=== PATIENT | male | born 2000 | race Caucasian/White ===

== ENCOUNTER 2024-11-22 20:00 | Inpatient (IN) | payer OTHER, SELFPAY ==
[2024-11-22 20:02] VITALS: BP 144/80; PULSE 78; RESP 18; TEMP 37; O2SAT 97; BMI 25.1
[2024-11-22 20:52] LABS: MANUAL DIFF FLAG NO
[2024-11-22 20:55] LABS: Basophils Absolute Auto 0.1 X10*3/uL (0.0-0.2); Basophils Percent Auto 0.5 % (0-2); Eosinophils Absolute Auto 0.3 X10*3/uL (0.0-0.4); Eosinophils Percent Auto 2.9 % (0-4); Hemoglobin 15.3 g/dl (14.0-18.0); Imm Gran Abs Auto 0.02 X10*3/uL (0.00-0.03); Imm Gran Pct Auto 0.2 % (0.0-0.4); Lymphocytes Percent Auto 20.5 % (20-40); Mean Corpuscular HGB Conc 35.6 g/dl (31.0-36.0); Mean Corpuscular Hemoglobin 30.5 pg (27.0-33.0); Mean Corpuscular Volume 85.8 fL (80.0-98.0); Mean Platelet Volume 8.4 fL (9.4-12.4); Monocytes Absolute Auto 0.9 X10*3/uL (0.1-1.2); Monocytes Percent Auto 9.3 % (2-11); Neutrophils Absolute Auto 6.4 x10*3/uL (2.0-8.3); Neutrophils Percent Auto 66.6 % (45-73); Platelet Count 372 X10*3/uL (160-400); Red Blood Count 5.01 X10*6/uL (4.60-5.80); Red Cell Distribution Width 12.6 % (11.0-16.0); White Blood Count 9.7 X10*3/uL (4.8-10.8)
[2024-11-22 21:03] VITALS: BP 137/82; PULSE 82; RESP 18; TEMP 36.9; O2SAT 97
[2024-11-22 21:05] LABS: Anion Gap 15 (12-20); Blood Urea Nitrogen 9 mg/dL (9-16); C Reactive Protein 0.18 mg/dL (< or = 0.50); Calcium 9.4 mg/dL (8.4-10.2); Carbon Dioxide 27 mmol/L (22-29); Chloride 102 mmol/L (96-108); Creatinine Clr Calc Pharmacy 147.8; Estimated Glomerular Filt Rate > 60; Glucose Random 108 mg/dL (60-115); Lipase 17 U/L (8-78); Sodium 140 mmol/L (135-145)
[2024-11-22 21:07] LABS: Lactic Acid 0.8 mmol/L (0.5-2.0)
--- NOTE | 2024-11-22 21:10 | ED_ITS ---
HPI - General Adult General Chief complaint: Wound/Laceration Stated complaint: left index finger infected / no drainage Time Seen by Provider: 11/22/24 20:09 Source: patient and RN notes reviewed Mode of arrival: ambulatory Limitations: no limitations History of Present Illness ED Provider: Ary DALEY narrative: 24-year-old male with past medical history significant for ADHD presents for evaluation of an abscess to his left 2nd finger. He was seen at his [facility] about a week ago and was placed on doxycycline. He reports he has 3 days left of the antibiotic but his finger is more painful, red and swollen than it was. He believes his symptoms started after he was biting his nails. He was able to flex and extend the finger Denies any fevers, chills. He was not a diabetic Related Data Allergies Allergy/AdvReac Type Severity Reaction Status Date / Time Penicillins Allergy Unknown Verified 11/22/24 20:05 Review of Systems 2 Constitutional: Constitutional: Denies body ache(s), Denies chills and Denies fever(s) Eyes: Eyes: Denies blurry vision Cardiovascular: Cardiovascular: Denies chest pain and Denies dyspnea Respiratory: Respiratory: Denies cough and Denies dyspnea Integumentary/Breasts: Skin/Breast: Reports erythema, Reports rash, Reports skin pain and Reports skin swelling PMFSH Social History Social History Advance Directives: No Advance Directives Information Provided: No Do you have a plan to hurt others: No Plan Physical Exam ED Vital Signs: Vital Signs - 24 hr 11/22/24 20:02 Temperature 98.6 F Pulse Rate 78 Respiratory Rate 18 Blood Pressure 144/80 H Pulse Oximetry 97 Oxygen Delivery Method Room Air BMI result Body Mass Index 25.1 Skin Other: Large paronychia to the left 2nd finger. There appears to be a felon on the finger pad. This area is tender to palpation. The patient is able to flex at the PIP and MCP joints but does have limited range of motion of the D IP joint. He does have some tenderness to the left forearm and streaking lymphangitis up with the left forearm. Procedures Abscess I/D Site: hand Side (if applicable): left (index finger) Local Anesthetic: lidocaine 1% Amount of anesthesia used (mL): 4 Technique: incised with blade Amount of fluid expressed (mL): 6 Sent for culture/gram staining?: Yes Irrigation: No Packing used?: none Medical Decision Making Medical Decision Making [facility] Narrative: 24-year-old male presents for evaluation of a paronychia to his left index finger. He has already failed outpatient antibiotics with doxycycline which he has been on for at least 4 days. See procedure note for paronychia drainage. I discussed with hand surgery, Dr. Vizcaino who recommends making a small incision at the fingertip due to the felon. Labs to be drawn, a wound culture was sent. The patient will give be given IV antibiotics with vancomycin and ceftriaxone. The patient will be NPO after midnight. Differential Diagnosis Differential Diagnoses: The differential diagnosis associated with the presentation includes Paronychia Abscess formation Felon Tenosynovitis Admission/Observation Consideration of admission/observation: Escalation of care including admission/observation considered Consult Healthcare Provider Management of the patient was discussed with: Senior Analyst [employer] (Hand surgery) Lab Data [facility] Lab Attestation statement: I reviewed the patient's lab results. No leukocytosis or anemia. Normal platelet count. No electrolyte abnormalities. Chemistries within normal limits 11/22/24 20:40 11/22/24 20:37 Labs: Lab Results 11/22/24 11/22/24 Range/Units 20:37 20:40 WBC 9.7 (4.8-10.8) X10*3/uL RBC 5.01 (4.60-5.80) X10*6/uL Hgb 15.3 (14.0-18.0) g/dl Hct 43.0 (42.0-52.0) % MCV 85.8 (80.0-98.0) fL MCH 30.5 (27.0-33.0) pg MCHC 35.6 (31.0-36.0) g/dl RDW 12.6 (11.0-16.0) % Plt Count 372 (160-400) X10*3/uL MPV 8.4 L (9.4-12.4) fL Immature Gran % (Auto) 0.2 (0.0-0.4) % Neut % (Auto) 66.6 (45-73) % Lymph % (Auto) 20.5 (20-40) % [place] % (Auto) 9.3 (2-11) % Eos % (Auto) 2.9 (0-4) % Baso % (Auto) 0.5 (0-2) % Lymph # (Auto) 2.0 (1.2-4.9) X10*3/uL [place] # (Auto) 0.9 (0.1-1.2) X10*3/uL Eos # (Auto) 0.3 (0.0-0.4) X10*3/uL Baso # (Auto) 0.1 (0.0-0.2) X10*3/uL Abs Immat Gran (auto) 0.02 (0.00-0.03) X10*3/uL Absolute Neuts (auto) 6.4 (2.0-8.3) x10*3/uL Absolute Nucleated RBC 0.000 (0.0-0.012) X10*3/uL Nucleated RBC % (auto) 0.0 (0.0-0.2) /100WBC Sodium 140 (135-145) mmol/L Potassium 4.0 (3.3-5.1) mmol/L Chloride 102 (96-108) mmol/L Carbon Dioxide 27 (22-29) mmol/L Anion Gap 15 (12-20) BUN 9 (9-16) mg/dL Creatinine 0.86 (0.5-1.4) mg/dL Estim Creat Clear Calc 147.8 Estimated GFR > 60 Random Glucose 108 (60-115) mg/dL Lactic Acid 0.8 (0.5-2.0) mmol/L Calcium 9.4 (8.4-10.2) mg/dL C-Reactive Protein 0.18 (< or = 0.50) mg/dL Lipase 17 (8-78) U/L Discharge Plan Discharge Clinical Impression: Abscess around fingernail of left hand Patient Disposition: Admitted As Inpatient Print Language: Wolof
[2024-11-22 21:36] LABS: Erythrocyte Sedimentation Rate 1 MM/HR (0-15)
--- NOTE | 2024-11-22 21:43 | P.HPHOSP_ITS ---
History of Present Illness Date of Service: 11/22/24 Chief Complaint: Finger infection This is a 24-year-old male with pertinent history of mood disorder who presents to the emergency department for evaluation of finger infection. Patient states he noticed left index finger infection 5-7 days ago. He went to his [facility] and was prescribed p.o. doxycycline. Patient thinks it started due to nail bite but the infection has been progressive in the finger has been progressively swollen, erythematous, painful and warm. Patient started p.o. antibiotics 3 days prior to presentation but noticed no improvement in infection. Is able to move his fingers but the movement is painful. No fever, chills, chest pain, palpitations, shortness of breath, abdominal pain, changes in urinary or bowel habits. In the emergency department, orthopedic surgery was consulted who requested admission to medicine team and will evaluate the patient in a.m.. Review of Systems 2 Constitutional: Constitutional: Reports no additional constitutional complaints Cardiovascular: Cardiovascular: Reports no additional cardiovascular complaints Respiratory: Respiratory: Reports no additional respiratory complaints Gastrointestinal: Gastrointestinal: Reports no additional gastrointestinal complaints Genitourinary: Genitourinary: Reports no additional male genitourinary complaints [facility] Medical History Nicotine addiction ADHD Pertinent family history: No family history of early CAD Social History Advance Directives: No Advance Directives Information Provided: No Do you have a plan to hurt others: No Plan Meds Allergies Allergy/AdvReac Type Severity Reaction Status Date / Time Penicillins Allergy Unknown Verified 11/22/24 20:05 Active Medications: Current Medications Vancomycin HCl (Vancomycin/Ns) 2,000 mg in 500 mls @ 250 mls/hr IV ONCE ONE Stop: 11/22/24 22:41 Piperacillin Sod/Tazobactam (Sod 4.5 gm/ Sodium Chloride) 100 mls @ 200 mls/hr IV ONCE ONE Stop: 11/22/24 22:11 Home Medications ?Medication ?Instructions ?Recorded ?Confirmed ?Last Taken ?Type doxycycline monohydrate 100 mg 100 mg PO BID 11/22/24 11/22/24 11/22/24 History capsule methylphenidate HCl 36 mg 36 mg PO DAILY 04/11/22/24 11/22/24 History tablet,extended release 24 hr Physical Exam 2 Vital Signs and Narrative: Vital Signs: Last Vital Signs Temp 98.6 F 11/22/24 20:02 Pulse 78 11/22/24 20:02 Resp 18 11/22/24 20:02 BP 144/80 H 11/22/24 20:02 Pulse Ox 97 11/22/24 20:02 O2 Del Method Room Air 11/22/24 20:02 BMI result Body Mass Index 25.1 Young male lying in bed in no distress Neck supple, no JVD Regular rate and rhythm, S1-S2 heard Regular breath sounds bilaterally, no wheezing or crackles appreciated Abdomen soft nontender, no guarding, no rigidity Patient is awake, alert and oriented to self, place, time and person ; no focal motor deficit Psych: Normal mood Left index finger with swelling, warmth, redness and tenderness (as pictured below) Skin: Other: Results Labs 11/22/24 20:40 11/22/24 20:37 Labs: Laboratory Results - last 24 hr 11/22/24 11/22/24 20:37 20:40 MCV 85.8 MCH 30.5 MCHC 35.6 RDW 12.6 Plt Count 372 MPV 8.4 L Immature Gran % (Auto) 0.2 Neut % (Auto) 66.6 Lymph % (Auto) 20.5 [place] % (Auto) 9.3 Eos % (Auto) 2.9 Baso % (Auto) 0.5 Lymph # (Auto) 2.0 [place] # (Auto) 0.9 Eos # (Auto) 0.3 Baso # (Auto) 0.1 Abs Immat Gran (auto) 0.02 Absolute Neuts (auto) 6.4 Absolute Nucleated RBC 0.000 Nucleated RBC % (auto) 0.0 ESR 1 Anion Gap 15 Estim Creat Clear Calc 147.8 Estimated GFR > 60 Random Glucose 108 Lactic Acid 0.8 Calcium 9.4 C-Reactive Protein 0.18 Lipase 17 Assessment and Plan (1) Abscess around fingernail of left hand: Status: Acute Plan This is a 24-year-old male with pertinent history of mood disorder who presents to the emergency department for evaluation of finger infection. #. Left finger abscess: Will admit patient with IV antibiotics as he failed outpatient p.o. doxycycline. Dr. Vizcaino, orthopedic surgery consulted in the ER who will evaluate the patient in a.m.. Will keep patient NPO after midnight. No sepsis #. ADHD: On methylphenidate Med rec pending DVT prophylaxis: None. Patient is ambulatory Full code Admit as inpatient and will require two night minimum hospital stay for IV antibiotics (as above), which is not possible in a lesser acute setting. Orthopedic surgery consult pending Quality Stroke Does the patient have a stroke diagnosis?: No VTE Prior VTE?: No VTE Risk Level:: Medical - low VTE Device Contraindication: Treatment Not Indicated VTE Drug Contraindication: Treatment Not Indicated
--- NOTE | 2024-11-22 21:46 | PHA.MEDREC ---
Addendum entered by Brittney Winslow RPh 11/22/24 22:01: reviewed by [facility]. Original Note: Pharmacy Consult ? Medication Reconciliation Pharmacy has completed the medication reconciliation. Patient confirmed he started the Doxycycline 100mg tab 1 twice a day on Friday night and confirmed he took both doses today.
[2024-11-22] MEDS: Lidocaine HCl 1 % MPF 5 ML VIAL INFILTRATI (22:08)
[2024-11-22] MEDS: ondansetron HCL 4 MG/2 ML VIAL IVPUSH (22:10)
[2024-11-22] MEDS: Morphine Sulfate 4 MG/ML CARTRIDGE IVPUSH (22:12)
[2024-11-22] MEDS: Piperacillin Sodium/Tazobactam 4.5 GM in 0.9 % Sodium Chloride 100 ML IV (22:14)
[2024-11-22] MEDS: vancomycin/NS 2,000 MG/500 ML PLAST..BAG 250 MG IV (22:46)
--- NOTE | 2024-11-22 23:02 | PHA.PROG ---
Admission Date/Time: November 22, 2024 20:59 Indication:skin + skin structure Weight in k.915 kg Adjusted body weight in Kg: [place] body weight in Kg: Obesity Dosing Indication % IBW: BMI 25.1 Serum Creatinine - Last 168 Hours 11/22/24 20:37 Creatinine 0.86 Estimated CrCl and GFR - Last 168 Hours 11/22/24 20:37 Estim Creat Clear Calc 147.8 Estimated GFR > 60 Vancomycin Loading Dose: 2000mg X1 Current Vancomycin Dosing Regimen: 1500mg Q12H Vancomycin Monitoring using AUC goal of 400 - 600 range with trough as surrogate marker: 554 Date and Time for next Vancomycin Level to be drawn: 11/24 @1000 Pharmacist Comments on Vancomycin Plan: Pt is young and great renal function, starting off with 1500mg Q12H, predicted trough 16.1. To be drawn 11/24 @1000 and adjusted as needed. Vancomycin dosing will take advantage of [employer] as a clinical decision support tool that uses Bayesian modeling to calculate individual patient's pharmacokinetic parameters and forecast the patient's drug concentration time course with the target goal AUC 24 range of 400 - 600 mg/L/hr.
[2024-11-23 04:00] VITALS: BP 114/56; PULSE 75; RESP 18; TEMP 36.6; O2SAT 98
[2024-11-23] MEDS: HYDROmorphone HCl 1 MG/ML SYRINGE 0.5 MG IVPUSH (04:13)
[2024-11-23] MEDS: Piperacillin Sodium/Tazobactam 4.5 GM in 0.9 % Sodium Chloride 100 ML IV ×4 (04:13→22:34)
--- NOTE | 2024-11-23 04:18 | PC.NURSE ---
medicated per mar and for pain management. Pt resting in stretcher, call baker at the bedside.
[2024-11-23] MEDS: 0.9 % Sodium Chloride Flush 3 ML SYRINGE IVFLUSH ×4 (04:20→22:34)
[2024-11-23 04:51] LABS: MANUAL DIFF FLAG NO
[2024-11-23 04:58] LABS: Basophils Percent Auto 0.3 % (0-2); Eosinophils Absolute Auto 0.4 X10*3/uL (0.0-0.4); Eosinophils Percent Auto 3.9 % (0-4); Hematocrit 39.7 % (42.0-52.0); Hemoglobin 13.9 g/dl (14.0-18.0); Imm Gran Abs Auto 0.02 X10*3/uL (0.00-0.03); Imm Gran Pct Auto 0.2 % (0.0-0.4); Lymphocytes Absolute Auto 2.7 X10*3/uL (1.2-4.9); Lymphocytes Percent Auto 28.2 % (20-40); Mean Corpuscular Hemoglobin 30.3 pg (27.0-33.0); Mean Corpuscular Volume 86.7 fL (80.0-98.0); Mean Platelet Volume 8.5 fL (9.4-12.4); Monocytes Absolute Auto 1.1 X10*3/uL (0.1-1.2); Neutrophils Absolute Auto 5.4 x10*3/uL (2.0-8.3); Neutrophils Percent Auto 56.4 % (45-73); Platelet Count 312 X10*3/uL (160-400); Red Blood Count 4.58 X10*6/uL (4.60-5.80); Red Cell Distribution Width 12.7 % (11.0-16.0); White Blood Count 9.6 X10*3/uL (4.8-10.8)
[2024-11-23 05:15] LABS: Anion Gap 12 (12-20); Blood Urea Nitrogen 9 mg/dL (9-16); Calcium 9.1 mg/dL (8.4-10.2); Carbon Dioxide 27 mmol/L (22-29); Chloride 107 mmol/L (96-108); Creatinine Clr Calc Pharmacy 153.2; Estimated Glomerular Filt Rate > 60; Glucose Random 83 mg/dL (60-115); Potassium 4.3 mmol/L (3.3-5.1); Sodium 142 mmol/L (135-145)
[2024-11-23 05:16] LABS: Creatinine Clr Calc Pharmacy 147.8; Estimated Glomerular Filt Rate > 60
--- NOTE | 2024-11-23 05:22 | PC.NURSE ---
pt sitting up on bed on cell phone, positive CMS to left hand and pulses.
--- NOTE | 2024-11-23 05:59 | PC.NURSE ---
pt oob with a steady gait.
[2024-11-23 08:00] VITALS: BP 122/66; PULSE 68; RESP 16; TEMP 36.2; O2SAT 98
--- NOTE | 2024-11-23 08:39 | P.CONOP_ITS ---
History of Present Illness HPI Consult date: 11/23/24 Chief complaint: finger infection Narrative: Patient is a 24-year-old male who presents to the emergency department for evaluation of left index finger paronychia Patient reports that this has been worsening over the last few days Patient states that the only known injury was that he was ?biting his nails? Patient does report that he has significant amount of pus was drained from the dorsal aspect of the finger with I and D in the the last night Patient does report that he 2nd incision was made on the pad of the finger, but significantly less drainage was noted from this incision site Today, the patient reports he does still have some pain in his finger but it has improved dramatically since prior to being in the emergency room Reports that most of the pain is in the dorsal and ulnar aspect of the distal left index finger around the fingernail Denies numbness or tingling No other acute complaints or concerns at this time PMFSH Past Medical History Medical History Nicotine addiction ADHD Social History Social History Household Members: Other Household Members Other:: friends Housing: House Do you presently have visiting nurse or other home services: No Patient Tobacco Use Status: Current everyday Tobacco user Tobacco use type: Cigarette Cigarette Packs Per Day: 0 Cigarettes Per Day: 2 Years Smoked: 5 Second Hand Smoke Exposure: Yes Substance Use Type: Marijuana Meds Allergies Allergy/AdvReac Type Severity Reaction Status Date / Time Penicillins Allergy Unknown Verified 11/22/24 20:05 Active Medications: Current Medications Acetaminophen (Acetaminophen 325 Mg Tablet) 650 mg PO Q6H PRN PRN Reason: Pain, Mild 1-3,fever,headache Calcium Carbonate (Calcium Carbonate 750 Mg Tab.Chew) 750 mg PO Q4H PRN PRN Reason: Heartburn Hydromorphone HCl (Hydromorphone Hcl 1 Mg/Ml Syringe) 0.5 mg IVPUSH Q4H PRN; Protocol PRN Reason: Pain, Severe (Pain Scale 7-10) Last Admin: 11/23/24 04:13 Dose: 0.5 mg Piperacillin Sod/Tazobactam (Sod 4.5 gm/ Sodium Chloride) 100 mls @ 200 mls/hr IV Q6H [facility] Last Infusion: 11/23/24 05:22 Dose: Infused Vancomycin HCl 1,500 mg/ (Sodium Chloride) 500 mls @ 333.333 mls/hr IV Q12H [facility] Magnesium Hydroxide (Milk Of Magnesia 30 Ml Oral.Susp) 30 ml PO DAILY PRN PRN Reason: Constipation Melatonin (Melatonin 3 Mg Tablet) 6 mg PO BEDTIME PRN PRN Reason: Insomnia Ondansetron HCl (Ondansetron Hcl 4 Mg/2 Ml Vial) 4 mg IVPUSH Q8H PRN PRN Reason: Nausea and Vomiting Pharmacy Consult (Consult Rx Vancomycin Dosing) 1 each MISCELLANE DAILY PRN PRN Reason: Consult order Sodium Chloride (0.9 % Sodium Chloride Flush 3 Ml Syringe) 3 ml IVFLUSH QSHIFT [facility] Last Admin: 11/23/24 04:20 Dose: 3 ml Home Medications ?Medication ?Instructions ?Recorded ?Confirmed ?Last Taken ?Type doxycycline monohydrate 100 mg 100 mg PO BID 11/22/24 11/22/24 11/22/24 History capsule methylphenidate HCl 36 mg 36 mg PO DAILY 11/22/24 11/22/24 11/22/24 History tablet,extended release 24 hr Physical Exam 2 Vital Signs: Vital Signs: Last Vital Signs Temp 97.1 F 11/23/24 08:00 Pulse 68 11/23/24 08:00 Resp 16 11/23/24 08:00 BP 122/66 11/23/24 08:00 Pulse Ox 98 11/23/24 08:00 O2 Del Method Room Air 11/23/24 08:00 BMI result Body Mass Index 25.1 Extrem: Other: Patient is alert, oriented, and in no acute distress. Neuro: Normal sensation of the tips of all digits of the left hand at this time Vascular: Cap refill brisk Pain: Mild to moderate tenderness to palpation of the dorsal and ulnar aspect of the left index finger Very mild tenderness to palpation of the volar aspect of the distal left index finger Mild discomfort with range of motion ROM: Patient was able to get close to making a closed fist with the left hand Skin: No lacerations or abrasions. Two small incision sites noted on the left index finger, 1 just proximal to the nail fold on the dorsal aspect and 1 on the pad Incision on dorsal aspect still open and draining, incision on pad of finger has closed There is noted to be bloody and purulent drainage expressed from the dorsal incision site No drainage from volar incision site Psych: Appears grossly normal Affect normal Attitude cooperative Results Labs 11/23/24 04:26 11/23/24 04: Labs: Abnormal lab results 11/22/24 11/23/24 Range/Units 20:40 04: RBC 4.58 L (4.60-5.80) X10*6/uL Hgb 13.9 L (14.0-18.0) g/dl Hct 39.7 L (42.0-52.0) % MPV 8.4 L 8.5 L (9.4-12.4) fL H & H 11/22/24 11/23/24 Range/Units 20:40 04:26 Hgb 15.3 13.9 L (14.0-18.0) g/dl Hct 43.0 39.7 L (42.0-52.0) % All other labs normal. Assessment and Plan (1) Abscess around fingernail of left hand: Status: Acute Plan 1. Paronychia and felon of left index finger Status post I and D in the ED Patient is educated about this condition Patient is educated about the typical treatment course Case was discussed with Dr. Vizcaino, and a collaborative treatment plan was formed: No acute surgery indicated today, patient can eat Patient will be NPO at midnight pending re-evaluation tomorrow Continue IV antibiotics Encourage warm saline soaks to encourage further drainage of the paronychia Continue with all other recommendations per Medicine Procedures Date of Service Date of Service: 11/23/24
[2024-11-23] MEDS: Methylphenidate HCl 10 MG TABLET PO (10:19)
[2024-11-23 11:28] VITALS: BP 126/59; PULSE 78; RESP 18; TEMP 36.4; O2SAT 99
[2024-11-23] MEDS: vancomycin HCL 1,500 MG in 0.9 % Sodium Chloride 500 ML 333.33 MG IV (11:33)
--- NOTE | 2024-11-23 13:07 | MHC.CM.PN ---
pt is a student at [employer] he is indepedent has a ride home dc plan home n/s
--- NOTE | 2024-11-23 13:13 | HO.PM.IMPN ---
Subjective Subjective Date of Service: 11/23/24 Interval History: No acute issues overnight. States finger feels better since I&D Review of Systems Denies chest pain Denies shortness of breath Denies nausea vomiting diarrhea Denies fever chills Physical Exam Vital Signs: Vital Signs: Last Vital Signs Temp 97.6 F 11/23/24 11:28 Pulse 78 11/23/24 11:28 Resp 18 11/23/24 11:28 BP 126/59 L 11/23/24 11:28 Pulse Ox 99 11/23/24 11:28 O2 Del Method Room Air 11/23/24 11:28 BMI result Body Mass Index 25.1 Const: Other: Awake alert oriented x3 in no acute distress Resp: Other: Clear to auscultation bilaterally no rales rhonchi or wheezes Cardio: Other: No S4; positive S1-S2; no S3 murmurs rubs or gallops GI: Other: Soft nontender nondistended normoactive bowel sounds Extrem: Other: No edema bilaterally. Left index finger bandage. Clean dry and intact Objective Data Active Medications Acetaminophen (Acetaminophen 325 Mg Tablet) 650 mg PO Q6H PRN PRN Reason: Pain, Mild 1-3,fever,headache Calcium Carbonate (Calcium Carbonate 750 Mg Tab.Chew) 750 mg PO Q4H PRN PRN Reason: Heartburn Hydromorphone HCl (Hydromorphone Hcl 1 Mg/Ml Syringe) 0.5 mg IVPUSH Q4H PRN; Protocol PRN Reason: Pain, Severe (Pain Scale 7-10) Last Admin: 11/23/24 04:13 Dose: 0.5 mg Documented By: TIERNEY Piperacillin Sod/Tazobactam (Sod 4.5 gm/ Sodium Chloride) 100 mls @ 200 mls/hr IV Q6H [facility] Last Infusion: 11/23/24 10:26 Dose: Infused Documented By: JOVI Vancomycin HCl 1,500 mg/ (Sodium Chloride) 500 mls @ 333.333 mls/hr IV Q12H [facility] Last Infusion: 11/23/24 13:08 Dose: Infused Documented By: JOVI Magnesium Hydroxide (Milk Of Magnesia 30 Ml Oral.Susp) 30 ml PO DAILY PRN PRN Reason: Constipation Melatonin (Melatonin 3 Mg Tablet) 6 mg PO BEDTIME PRN PRN Reason: Insomnia Methylphenidate HCl (Methylphenidate Hcl 10 Mg Tablet) 10 mg PO BID@0900,1400 [facility] Last Admin: 11/23/24 10:19 Dose: 10 mg Documented By: JOVI Ondansetron HCl (Ondansetron Hcl 4 Mg/2 Ml Vial) 4 mg IVPUSH Q8H PRN PRN Reason: Nausea and Vomiting Pharmacy Consult (Consult Rx Vancomycin Dosing) 1 each MISCELLANE DAILY PRN PRN Reason: Consult order Sodium Chloride (0.9 % Sodium Chloride Flush 3 Ml Syringe) 3 ml IVFLUSH QSHIFT [facility] Last Admin: 11/23/24 09:14 Dose: 3 ml Documented By: JOVI Labs 11/23/24 04:26 11/23/24 04:26 Labs: Laboratory Results - last 24 hr 11/22/24 11/22/24 11/23/24 20:37 20:40 04:26 MCV 85.8 86.7 MCH 30.5 30.3 MCHC 35.6 35.0 RDW 12.6 12.7 Plt Count 372 312 MPV 8.4 L 8.5 L Immature Gran % (Auto) 0.2 0.2 Neut % (Auto) 66.6 56.4 Lymph % (Auto) 20.5 28.2 [place] % (Auto) 9.3 11.0 Eos % (Auto) 2.9 3.9 Baso % (Auto) 0.5 0.3 Lymph # (Auto) 2.0 2.7 [place] # (Auto) 0.9 1.1 Eos # (Auto) 0.3 0.4 Baso # (Auto) 0.1 0.0 Abs Immat Gran (auto) 0.02 0.02 Absolute Neuts (auto) 6.4 5.4 Absolute Nucleated RBC 0.000 0.000 Nucleated RBC % (auto) 0.0 0.0 ESR 1 Anion Gap 15 12 Estim Creat Clear Calc 147.8 153.2 Estimated GFR > 60 Random Glucose 108 Lactic Acid 0.8 Calcium 9.4 C-Reactive Protein 0.18 Lipase 17 11/23/24 11/23/24 04:26 04:26 MCV MCH MCHC RDW Plt Count MPV Immature Gran % (Auto) Neut % (Auto) Lymph % (Auto) [place] % (Auto) Eos % (Auto) Baso % (Auto) Lymph # (Auto) [place] # (Auto) Eos # (Auto) Baso # (Auto) Abs Immat Gran (auto) Absolute Neuts (auto) Absolute Nucleated RBC Nucleated RBC % (auto) ESR Anion Gap Estim Creat Clear Calc 147.8 Estimated GFR > 60 > 60 Random Glucose 83 Lactic Acid Calcium 9.1 C-Reactive Protein Lipase Microbiology Microbiology Results: Microbiology 11/22/24 20:37 Gram Stain - Final Finger Routine Culture - Preliminary No growth to date. Assessment and Plan (1) Abscess around fingernail of left hand: Status: Acute Plan This is a 24-year-old male with pertinent history of mood disorder who presents to the emergency department for evaluation of finger infection. 1.Left finger abscess -I&D in ER -pain control adequate -vancomycin/Zosyn (2) -NPO after midnight. Surgery to re-evaluate in a.m. 2.ADHD -methylphenidate only in school None. Patient is ambulatory Full code Requires ongoing hospitalization for IV antibiotics to treat infected left finger which has failed outpatient therapies Quality Stroke Does the patient have a stroke diagnosis?: No VTE Prior VTE?: No VTE Risk Level:: Medical - low VTE Device Contraindication: Treatment Not Indicated VTE Drug Contraindication: Treatment Not Indicated
--- NOTE | 2024-11-23 13:52 | PC.NURSE ---
Warm soaks done q 2 hrs ,patient is tolerating it well
[2024-11-23 15:02] VITALS: BP 137/63; PULSE 73; RESP 18; TEMP 36.7; O2SAT 99
[2024-11-23 19:23] VITALS: BP 131/76; PULSE 75; RESP 18; TEMP 36.4; O2SAT 98
[2024-11-23 23:27] VITALS: BP 141/60; PULSE 64; RESP 20; TEMP 36.9; O2SAT 97
[2024-11-24] MEDS: vancomycin HCL 1,500 MG in 0.9 % Sodium Chloride 500 ML 333.33 MG IV (01:00)
[2024-11-24 03:05] VITALS: BP 112/60; PULSE 84; RESP 20; TEMP 36.7; O2SAT 98
[2024-11-24] MEDS: Piperacillin Sodium/Tazobactam 4.5 GM in 0.9 % Sodium Chloride 100 ML IV ×4 (04:07→21:05)
[2024-11-24 06:34] LABS: MANUAL DIFF FLAG NO
[2024-11-24 06:37] LABS: Basophils Absolute Auto 0.1 X10*3/uL (0.0-0.2); Basophils Percent Auto 0.6 % (0-2); Eosinophils Absolute Auto 0.5 X10*3/uL (0.0-0.4); Eosinophils Percent Auto 5.7 % (0-4); Hematocrit 42.8 % (42.0-52.0); Hemoglobin 14.5 g/dl (14.0-18.0); Imm Gran Abs Auto 0.01 X10*3/uL (0.00-0.03); Imm Gran Pct Auto 0.1 % (0.0-0.4); Lymphocytes Percent Auto 34.8 % (20-40); Mean Corpuscular HGB Conc 33.9 g/dl (31.0-36.0); Mean Corpuscular Hemoglobin 29.8 pg (27.0-33.0); Mean Corpuscular Volume 88.1 fL (80.0-98.0); Mean Platelet Volume 8.6 fL (9.4-12.4); Monocytes Absolute Auto 0.8 X10*3/uL (0.1-1.2); Monocytes Percent Auto 9.8 % (2-11); Neutrophils Absolute Auto 4.2 x10*3/uL (2.0-8.3); Platelet Count 314 X10*3/uL (160-400); Red Blood Count 4.86 X10*6/uL (4.60-5.80); Red Cell Distribution Width 12.7 % (11.0-16.0); White Blood Count 8.5 X10*3/uL (4.8-10.8)
[2024-11-24 06:52] LABS: Creatinine Clr Calc Pharmacy 115.6; Estimated Glomerular Filt Rate > 60
[2024-11-24 07:14] VITALS: BP 140/62; PULSE 62; RESP 16; TEMP 36.8; O2SAT 98
[2024-11-24] MEDS: 0.9 % Sodium Chloride Flush 3 ML SYRINGE IVFLUSH ×3 (09:08→23:19)
[2024-11-24 10:40] LABS: Vancomycin Random 16.3 mcg/mL (15-20)
--- NOTE | 2024-11-24 10:49 | HE.PHANOTE ---
Re Vanco SCr increase over night. Trough therapeutic after 3 doses but now predicted to be slightly high. Since it is a skin infection, will reduce to 1250mg q12h. Projected trough is 14.9 mg/L and AUC of 498 mg/L
--- NOTE | 2024-11-24 11:14 | PM.PNORT ---
Subjective Subjective Date of Service: 11/24/24 Interval history: 24-year-old male Admitted to the hospital for left index finger paronychia Resting comfortably in the this morning Reports no pain No acute events overnight No other acute complaints or concerns at this time Physical Exam Vital Signs: Vital Signs: Last Vital Signs Temp 98.2 F 11/24/24 07:14 Pulse 62 11/24/24 07:14 Resp 16 11/24/24 07:14 BP 140/62 H 11/24/24 07:14 Pulse Ox 98 11/24/24 07:14 O2 Del Method Room Air 11/24/24 07:14 BMI result Body Mass Index 25.1 Extrem: Other: Patient is alert, oriented, and in no acute distress. Neuro: Normal sensation of the tips of all digits of the left hand at this time Vascular: Cap refill brisk Pain: No tenderness to palpation of the dorsal and ulnar aspect of the left index finger No tenderness to palpation of the volar aspect of the distal left index finger No discomfort with range of motion ROM: Patient was able to get close to making a closed fist with the left hand Skin: No lacerations or abrasions. Two small incision sites noted on the left index finger, 1 just proximal to the nail fold on the dorsal aspect and 1 on the pad Incision on dorsal aspect with no active drainage at this time and appears closed No drainage from volar incision site Psych: Appears grossly normal Affect normal Attitude cooperative Procedures Date of Service Date of Service: 11/24/24 Progress Note: A&P Assessment and plan (1) Abscess around fingernail of left hand: Status: Acute Plan 1. Paronychia of the left index finger Status post I and D in the ED Continue with warm water soaks to encourage drainage Continue antibiotics Patient can eat today NPO at midnight pending evaluation tomorrow Continue with warm water soaks to encourage drainage Dressing changes daily and as needed Time Spent With Patient Time: Total time managing care of this patient today ____ minutes. Quality Stroke Does the patient have a stroke diagnosis?: No VTE Prior VTE?: No VTE Risk Level:: Medical - low VTE Device Contraindication: Treatment Not Indicated VTE Drug Contraindication: Treatment Not Indicated
[2024-11-24] MEDS: vancomycin HCL 1,250 MG in 0.9 % Sodium Chloride 250 ML 166.67 MG IV (11:53)
[2024-11-24 12:00] VITALS: BP 142/68; PULSE 86; RESP 18; TEMP 36.5; O2SAT 98
[2024-11-24 15:15] VITALS: BP 136/74; PULSE 71; RESP 18; TEMP 36.7; O2SAT 99
--- NOTE | 2024-11-24 15:15 | MHC.CM.PN ---
per rounds pt pt to go to or today
--- NOTE | 2024-11-24 16:11 | P.PNIM_ITS ---
Subjective Subjective Date of Service: 11/24/24 Interval History: No acute issues overnight remains afebrile Review of Systems Denies chest pain Denies shortness of breath Denies nausea vomiting diarrhea Denies fever chills Physical Exam 2 Vital Signs: Vital Signs: Last Vital Signs Temp 98.1 F 11/24/24 15:15 Pulse 71 11/24/24 15:15 Resp 18 11/24/24 15:15 BP 136/74 11/24/24 15:15 Pulse Ox 99 11/24/24 15:15 O2 Del Method Room Air 11/24/24 15:15 BMI result Body Mass Index 25.1 Const: Other: Awake alert oriented x3 in no acute distress Resp: Other: Clear to auscultation bilaterally no rales rhonchi or wheezes Cardio: Other: No S4; positive S1-S2; no S3 murmurs rubs or gallops GI: Other: Soft nontender nondistended normoactive bowel sounds Extrem: Other: No edema bilaterally. Left index finger bandage. Clean dry and intact Objective Data Active Medications Acetaminophen (Acetaminophen 325 Mg Tablet) 650 mg PO Q6H PRN PRN Reason: Pain, Mild 1-3,fever,headache Calcium Carbonate (Calcium Carbonate 750 Mg Tab.Chew) 750 mg PO Q4H PRN PRN Reason: Heartburn Hydromorphone HCl (Hydromorphone Hcl 1 Mg/Ml Syringe) 0.5 mg IVPUSH Q4H PRN; Protocol PRN Reason: Pain, Severe (Pain Scale 7-10) Last Admin: 11/23/24 04:13 Dose: 0.5 mg Documented By: TIERNEY Piperacillin Sod/Tazobactam (Sod 4.5 gm/ Sodium Chloride) 100 mls @ 200 mls/hr IV Q6H [facility] Last Infusion: 11/24/24 15:50 Dose: Infused Documented By: SIGRID Vancomycin HCl 1,250 mg/ (Sodium Chloride) 250 mls @ 166.667 mls/hr IV Q12H [facility] Last Infusion: 11/24/24 14:34 Dose: Infused Documented By: SIGRID Magnesium Hydroxide (Milk Of Magnesia 30 Ml Oral.Susp) 30 ml PO DAILY PRN PRN Reason: Constipation Melatonin (Melatonin 3 Mg Tablet) 6 mg PO BEDTIME PRN PRN Reason: Insomnia Ondansetron HCl (Ondansetron Hcl 4 Mg/2 Ml Vial) 4 mg IVPUSH Q8H PRN PRN Reason: Nausea and Vomiting Oxycodone HCl (Oxycodone Hcl Immed Release 5 Mg Tablet) 5 mg PO Q4H PRN PRN Reason: Pain, Moderate(Pain Scale 4-6) Pharmacy Consult (Consult Rx Vancomycin Dosing) 1 each MISCELLANE DAILY PRN PRN Reason: Consult order Sodium Chloride (0.9 % Sodium Chloride Flush 3 Ml Syringe) 3 ml IVFLUSH QSHIFT [facility] Last Admin: 11/24/24 15:21 Dose: 3 ml Documented By: SIGRID Labs 11/24/24 05:54 11/24/24 05:54 Labs: Laboratory Results - last 24 hr 11/24/24 11/24/24 05:54 10:02 MCV 88.1 MCH 29.8 MCHC 33.9 RDW 12.7 Plt Count 314 MPV 8.6 L Immature Gran % (Auto) 0.1 Neut % (Auto) 49.0 Lymph % (Auto) 34.8 [place] % (Auto) 9.8 Eos % (Auto) 5.7 H Baso % (Auto) 0.6 Lymph # (Auto) 3.0 [place] # (Auto) 0.8 Eos # (Auto) 0.5 H Baso # (Auto) 0.1 Abs Immat Gran (auto) 0.01 Absolute Neuts (auto) 4.2 Absolute Nucleated RBC 0.000 Nucleated RBC % (auto) 0.0 Estim Creat Clear Calc 115.6 Estimated GFR > 60 Random Vancomycin 16.3 Microbiology Microbiology Results: Microbiology 11/22/24 20:37 Gram Stain - Final Finger Routine Culture - Preliminary Viridans streptococcus group 11/22/24 21:29 Blood Culture - Preliminary Blood - Venous No growth after 24 hours. 11/22/24 20:37 Blood Culture - Preliminary Blood - Venous No growth after 24 hours. Assessment and Plan (1) Abscess around fingernail of left hand: Status: Acute Plan This is a 24-year-old male with pertinent history of mood disorder who presents to the emergency department for evaluation of finger infection. 1.Left finger abscess -I&D in ER -pain control adequate -vancomycin/Zosyn (3) -NPO after midnight. Surgery to re-evaluate in a.m. 5 2.ADHD -methylphenidate only in school None. Patient is ambulatory Full code Requires ongoing hospitalization for IV antibiotics to treat infected left finger which has failed outpatient therapies Quality Stroke Does the patient have a stroke diagnosis?: No VTE Prior VTE?: No VTE Risk Level:: Medical - low VTE Device Contraindication: Treatment Not Indicated VTE Drug Contraindication: Treatment Not Indicated
[2024-11-24 19:18] VITALS: BP 147/67; PULSE 68; RESP 18; TEMP 36.6; O2SAT 98
[2024-11-24] MEDS: vancomycin HCL 1,250 MG in 0.9 % Sodium Chloride 250 ML 166.66 MG IV (23:18)
[2024-11-24 23:36] VITALS: BP 125/65; PULSE 57; RESP 20; TEMP 36.7; O2SAT 98
[2024-11-25 03:31] VITALS: BP 131/75; PULSE 61; RESP 20; TEMP 37; O2SAT 98
[2024-11-25] MEDS: Piperacillin Sodium/Tazobactam 4.5 GM in 0.9 % Sodium Chloride 100 ML IV ×2 (03:58→09:07)
[2024-11-25 07:17] VITALS: BP 126/76; PULSE 92; TEMP 36.2; O2SAT 98
[2024-11-25 07:45] LABS: Creatinine Clr Calc Pharmacy 116.6; Estimated Glomerular Filt Rate > 60
[2024-11-25] MEDS: 0.9 % Sodium Chloride Flush 3 ML SYRINGE IVFLUSH (09:07)
--- NOTE | 2024-11-25 09:54 | PM.PNORT ---
Subjective Subjective Date of Service: 11/25/24 Interval history: 24-year-old male Admitted to the hospital for left index finger paronychia Resting comfortably in the this morning Reports no pain No acute events overnight No other acute complaints or concerns at this time Physical Exam Vital Signs: Vital Signs: Last Vital Signs Temp 97.2 F 11/25/24 07:17 Pulse 92 11/25/24 07:17 Resp 20 11/25/24 03:31 BP 126/76 11/25/24 07:17 Pulse Ox 98 11/25/24 07:17 O2 Del Method Room Air 11/25/24 07:17 BMI result Body Mass Index 25.1 Extrem: Other: Patient is alert, oriented, and in no acute distress. Neuro: Normal sensation of the tips of all digits of the left hand at this time Vascular: Cap refill brisk Pain: No tenderness to palpation of the dorsal and ulnar aspect of the left index finger No tenderness to palpation of the volar aspect of the distal left index finger No discomfort with range of motion ROM: Patient was able to get close to making a closed fist with the left hand Skin: No lacerations or abrasions. Two small incision sites noted on the left index finger, 1 just proximal to the nail fold on the dorsal aspect and 1 on the pad Slight purulent drainage noted from dorsal incision, mostly serosanguineous No drainage from volar incision site Psych: Appears grossly normal Affect normal Attitude cooperative Procedures Date of Service Date of Service: 11/25/24 Progress Note: A&P Assessment and plan (1) Abscess around fingernail of left hand: Status: Acute Plan 1. Paronychia of the left index finger Status post I and D in the ED Continue with warm water soaks to encourage drainage Continue antibiotics Stable for discharge today Continue with warm water soaks to encourage drainage Dressing changes daily and as needed Follow-up in our office outpatient Time Spent With Patient Time: Total time managing care of this patient today ____ minutes. Quality Stroke Does the patient have a stroke diagnosis?: No VTE Prior VTE?: No VTE Risk Level:: Medical - low VTE Device Contraindication: Treatment Not Indicated VTE Drug Contraindication: Treatment Not Indicated
[2024-11-25 11:16] VITALS: BP 145/83; PULSE 88; RESP 18; TEMP 36.1; O2SAT 98
--- NOTE | 2024-11-25 12:10 | PC.NURSE ---
Abel Plunkett, plan d/c Home. Oral ABT
--- NOTE | 2024-11-25 12:16 | P.DS_ITS ---
DS: Providers Provider Date of Service: 11/25/24 Date of admission: 11/22/24 20:59 Date of discharge: 11/25/24 Primary care physician: None Physician Consults: 11/22/24 21:45 Consult to Orthopedics Routine Consulting Provider: [facility] Reason for consultation: finger infection DS: Diagnosis Discharge Diagnosis (1) Abscess around fingernail of left hand: Status: Acute DS: Summary Hospital Course Hospital Course: 24-year-old male with pertinent history of mood disorder who presents to the emergency department for evaluation of finger infection. Patient states he noticed left index finger infection 5-7 days ago. He went to his [facility] and was prescribed p.o. doxycycline. Patient thinks it started due to nail bite but the infection has been progressive in the finger has been progressively swollen, erythematous, painful and warm. Patient started p.o. antibiotics 3 days prior to presentation but noticed no improvement in infectio n. Is able to move his fingers but the movement is painful. No fever, chills, chest pain, palpitations, shortness of breath, abdominal pain, changes in urinary or bowel habits. Hospital Course Patient had finger drained under local anesthetic in the ER was admitted to the floor on vancomycin and Zosyn. He was seen in consultation by Orthopedic surgery and was kept for 48 hours observing the wound. On the day of discharge his seen by Orthopedics and cleared for discharge. He will be discharged on Augmentin 875 twice daily. Of note he had no issues on Zosyn while in-house Time Attestation Discharge Coordination Time (in mins): 35 Quality: Safe Use of Opioids Does Pt have an Active Cancer Diagnosis on the Problem List?: No Quality: Stroke Does the patient have a stroke diagnosis?: No Physical Exam Vital Signs: Vital Signs: Last Vital Signs Temp 97.0 F 11/25/24 11:16 Pulse 88 11/25/24 11:16 Resp 18 11/25/24 11:16 BP 145/83 H 11/25/24 11:16 Pulse Ox 98 11/25/24 11:16 O2 Del Method Room Air 11/25/24 11:16 BMI result Body Mass Index 25.1 Const: Other: Awake alert oriented x3 in no acute distress Resp: Other: Clear to auscultation bilaterally no rales rhonchi or wheezes Cardio: Other: No S4; positive S1-S2; no S3 murmurs rubs or gallops GI: Other: Soft nontender nondistended normoactive bowel sounds Extrem: Other: No edema bilaterally. Left index finger bandage. Clean dry and intact DS: Data Data Completed and Pending Labs on day of discharge: Laboratory Results - last 24 hr 11/25/24 06:01 Hold Purple Top SEE NOTE Creatinine 1.09 Estim Creat Clear Calc 116.6 Estimated GFR > 60 Preliminary micro results at discharge 11/22/24 21:29 Blood Culture - Preliminary Blood - Venous No growth after 48 hours. 11/22/24 20:37 Blood Culture - Preliminary Blood - Venous No growth after 48 hours. Discharge Plan Discharge Anticipated Discharge Date/Time: 11/25/24 12:10 Patient Disposition: Home, Self-Care Discharge Diagnosis: Left index finger Referrals: Physician,None [Primary Care Provider] - 1 Week Discharge Medications: New amoxicillin-pot clavulanate 875-125 mg tablet 1 tab PO BID Qty: 14 0RF Continued methylphenidate HCl 36 mg tablet extended release 24hr 36 mg PO DAILY Discontinued doxycycline monohydrate 100 mg capsule 100 mg PO BID Discharge Orders: Discharge Order (Routine); Ordered 11/25/24 Ordered By: Padilla Aiken Diet: Advance to usual diet Activity on Discharge: As tolerated Stand Alone Forms: Patient Portal Discharge page, Work/School Release Print Language: [place] Citizen Care Plan Goals: Resume all your meds that you are taking before hospitalization Health Concerns: Augmentin 875 twice daily for 14 days has been given to you please complete as tolerated. You list of penicillin allergy however you have received this medicine in IV form since arrival and and should have no problem Plan of Treatment: Follow up with PCP next available Assessment: See discharge summary
[2024-11-25 12:18] LABS: Vancomycin Random 8.2 mcg/mL (15-20)
--- NOTE | 2024-11-25 13:00 | MHC.CM.PN ---
PT TO DC HOME TODAY WITH NO SERVICES VIA PRIVATE TRANSPORT
== END 2024-11-25 12:51 | disposition home or self-care (01) | DRG 603 ==
LOC: HO.ED 21:15 → HO.EDOVER 21:17 → HO.S3 11-23 07:32
PROVIDERS: Physician Assistant; Admitting Provider Student in an Organized Health Care Education/Training Program; Emergency Provider Emergency Medicine; Visit Provider Hospitalist
DX: L02.512 Cutaneous abscess of left hand (principal); F90.9 Attention-deficit hyperactivity disorder, unspecified type; L03.012 Cellulitis of left finger; F39 Unspecified mood [affective] disorder; F17.210 Nicotine dependence, cigarettes, uncomplicated; Z71.6 Tobacco abuse counseling; Z79.899 Other long term (current) drug therapy
CPT/HCPCS: 36415; 80048; 80202; 82565; 83605; 83690; 85025; 85652; 86140; 87040; 87070; 87147; 87205; 99285; J1171; J2003; J2270; J2405; J2543; J3370; J3371

== ENCOUNTER → 2024-11-22 20:59 | Outpatient (BNV) | payer OTHER, SELFPAY | PROVIDERS: Admitting Provider Student in an Organized Health Care Education/Training Program; Emergency Provider Emergency Medicine | DX: L03.012 Cellulitis of left finger (principal) | CPT/HCPCS: 99222; 99232 ==

== ENCOUNTER → 2024-11-22 20:59 | Outpatient (BNV) | payer OTHER, SELFPAY | PROVIDERS: Admitting Provider Student in an Organized Health Care Education/Training Program; Emergency Provider Emergency Medicine; Visit Provider Student in an Organized Health Care Education/Training Program | DX: L03.012 Cellulitis of left finger (principal) | CPT/HCPCS: 99222; 99232 ==

== ENCOUNTER 2024-11-30 14:48 | Outpatient (AMB) | payer OTHER, SELFPAY ==
--- NOTE | 2024-11-30 14:58 | A.OFFVIS_ITS ---
Vital Signs 11/30/24 15:00 Height 6 ft Weight 185 lb BMI 25.1 Handedness Right Intake Visit Reasons: ED f/u- left index finger paronychia Intake Note: Louie is a 24 year old right hand dominant male who presents today for an emergency department follow up of his left index finger paronychia. He was [place] [facility] [place]22[place]24 for concerns of increased swelling and pain of the left index finger. He had previously placed on Doxycycline at [facility] and was placed on IV antibiotics with vancomycin and ceftriaxone and I&D done while in ED. Patient reports he was having pain however this has resolved. He states it has been 3 to 4 days with no drainage from his wound. Reports slight numbness at tip of left finger. He reports no known injury, just some nail biting. Allergies Penicillins Allergy (Verified 11/30/24 15:01) Unknown HPI HPI ED f/u- left index finger paronychia: Details: Louie is a 24 year old right hand dominant male who presents today for an emergency department follow up of his left index finger paronychia. He was seen at [facility] on 11/22/24 for concerns of increased swelling and pain of the left index finger. He had previously placed on Doxycycline at [facility] and was placed on IV antibiotics with vancomycin and ceftriaxone and I&D done while in ED. Patient reports he was having pain however this has resolved. He states it has been 3 to 4 days with no drainage from his wound. Reports slight numbness at tip of left finger. He reports no known injury, just nail biting. [facility] Medical History Nicotine addiction ADHD Social History Household Members: Other Household Members Other:: friends Housing: House Do you presently have visiting nurse or other home services: No Patient Tobacco Use Status: Current everyday Tobacco user Tobacco use type: Cigarette Cigarette Packs Per Day: 0 Cigarettes Per Day: 2 Years Smoked: 5 Second Hand Smoke Exposure: Yes Substance Use Type: Marijuana service: No Review of Systems Const All systems reviewed & are unremarkable except as noted in HPI and below Physical Exam Vital Signs: BMI result Body Mass Index 25.1 Last Vital Signs Temp 97.2 F 11/25/24 07:17 Pulse 92 11/25/24 07:17 Resp 20 11/25/24 03:31 BP 126/76 11/25/24 07:17 Pulse Ox 98 11/25/24 07:17 O2 Del Method Room Air 11/25/24 07:17 BMI result Body Mass Index 25.1 Extrem Other: Patient is alert, oriented, and in no acute distress. Neuro: Normal sensation of the tips of all digits of the left hand at this time Vascular: Cap refill brisk Pain: No tenderness to palpation of the dorsal and ulnar aspect of the left index finger No tenderness to palpation of the volar aspect of the distal left index finger No discomfort with range of motion ROM: Patient was able to get close to making a closed fist with the left hand Skin: No lacerations or abrasions. Incision sites closed, no drainage, no erythema, no swelling No drainage from volar incision site Psych: Appears grossly normal Affect normal Attitude cooperative Assessment & Plan Assessment & Plan (1) Abscess around fingernail of left hand: Code(s): L03.012 - Cellulitis of left finger Category: Medical Plan 1. Status post bedside I and D of paronychia and felon of left index finger Patient appears to be recovering well from his injury Patient is educated about the typical recovery course Patient will require no further acute follow-up with us Should finish current course of antibiotics No further antibiotic therapy indicated at this time Follow-up as needed for any recurrence or other acute concerns Coding Level of Care Code New Pt Level 3 (45525) Diagnoses Abscess around fingernail of left hand L03.012
[2024-11-30 15:00] VITALS: BMI 25.1
--- OUTSIDE RECORDS SUMMARY | 2024-11-30 16:05 | XMS_ITS | Clinical Summary ---
Author Organization [facility] Address [address] [place] [address] Care Team Providers Care Stopper Maker Name Role Phone Sherly De Jesus MD Unavailable [phone] Allergies Active Allergy Reactions Criticality Noted Date Comments Amoxicillin Swelling Low 07/12/2016 Swelling of lip. Medications * This document contains information received from the source organization and may not represent a complete record from that organization. albuterol (PROVENTIL HFA,VENTOLIN HFA, PROAIR HFA) 108 (90 Base) MCG/ACT inhaler 2 puffs every 4 to 6 hours as needed for cough or wheeze 6 Active fluticasone (FLOVENT HFA) 110 MCG/ACT inhaler Use two puffs twice a day for yellow zone; rinse mouth afterward 5 Active fluticasone (FLONASE) 50 MCG/ACT nasal spray 1 spray by Nasal route Active Active Problems Problem Noted Date Diagnosed Date Mild intermittent asthma without complication Immunizations Immunization Administration Dates Next Due DTaP age 2 MO to <7 Yrs 04/17/2007,10/11,2002,2002,2002 HIB PRP-D,booster 10/12/2003, 3,2002,2001 Hep B Pedi/Adol 3 Dose Less than age 20 01/21/2003,2002,2002 INFLUENZA VIRUS TRI W/PRESV VACCINE 18/> YRS IM (PRIVATE) 06/07/2015,05/25/2014,07/14/2013,2011,05/31/2011 IPV 04/17/2007, 4,2002,2001 Influenza Virus Quad Presv F ree Vacc 6 Mo and Older, IM 06/24/2017 MMR 06/06/2006,04/20/2003 Menactra (Meningococcal) 12/03/2013 Pneumococcal Vaccine, Conjugate V7 04/10,2002,2002,2001 Tdap 12/03/2013 Varivax (chicken pox vaccine) 05/13/2008, 004 Social History Tobacco Use Types Packs/Day Years Used Date Smoking Tobacco: Never Smokeless Tobacco: Never Alcohol Use Standard Drinks/Week Comments No 0 (1 standard drink = 0.6 oz pur e alcohol) Sex and Gender Information Value Date Recorded Sex Assigned at Not on file Legal Sex Male 7:22 PM EDT Gender Identity Not on file Sexual Orientation Not on file 11/02/2018 8: 48 AM EDT Last Filed Vital Signs Vital Sign Reading Time Taken Comments Blood Pressure 127/66 08/25/2017 7:54 PM EST Pulse 118 08/25/2017 7:54 PM EST Temperature 36.9 ??C (98.4 ??F) 08/25/2017 7:54 PM ES T Respiratory Rate 16 08/25/2017 7:54 PM EST Oxygen Saturation 100% 08/25/2017 7:54 PM EST Inhaled Oxygen Concentration - - Weight 59 kg (130 lb) 08/25/2017 7:54 PM EST Height 172.1 cm (5' 7.75 ) 06/24/2017 10:[address] Body Mass Index - - Plan of Treatment Health Maintenance Due Date Last Done Comments HIV SCREENING 2015 AWQ Questionnaire 2020 HEALTH CARE PROXY 2020 HEP C SCREEN 2020 LIPID SCREENING 2020 TETANUS VACCINE (7 - Td or Tdap) 12/04/2023 12/03/2013, 04/17/2007, 10/12/2003, Additional history exists COVID-19 Vaccine ( season) 2024 06/22/2023, 06/22/2021, 11/22/2020, Additional history exists PHYSICAL EXAM 2024 06/24/2017 INFLUENZA VACCINE (Season Ended) 2025 05/27/2023, 07/26/2021, 04/03/2020, Additional history exists ZOSTER VACCINE (1 of 2) 2052 PNEUMOCOCCAL VACCINE SERIES (< 65) Aged Out 04/10/2003, 2002, 2002, Additional history exists No longer eligible based on patient's age to complete this topic HPV VACCINE SERIES Completed 04/08/2019, 1 , 03/06/2016 Insurance [facility] [employer] [place] [id number] * Guarantor: [facility] Account Type Relation to Patient Date of Phone Billing Address Confidential Sponsored Guarantor 07/28/[address] ATTN: [place] [address] * Guarantor: [facility] Account Type Relation to Patient Date of Phone Billing Address Confidential Sponsored Guarantor 07/28/[address] [place]: [place] [address] Care Teams Stopper Maker Relationship Specialty Start Date End Date Sherly De Jesus MD [address] [address] PCP - Insurance PCP 05/30/15
--- OUTSIDE RECORDS SUMMARY | 2024-11-30 16:05 | XMS_ITS | Clinical Summary ---
Author Organization [facility] Address [address] [place] [address] Care Team Providers Care Bagger And Stock Handler Helper Name Role Phone Ez Pedersen MD Primary Care Provider [phone] Allergies Active Allergy Reactions Criticality Noted Date Comments Penicillins 02/21/2023 Medications albuterol HFA (PROVENTIL HFA;VENTOLIN HFA) 90 mcg/actuation inhaler Inhale 2 puffs every 6 (six) hours as needed for wheezing. Active Social History Tobacco Use Types Packs/Day Years Used Date Smoking Tobacco: Some Days Cigarettes Smokeless Tobacco: Never Tobacco Cessation:Ready to Q uit: Not Asked; Counseling Given: Not Answered Alcohol Use Standard Drinks/Week Comments Yes 0 (1 standard drink = 0.6 oz pur e alcohol) rearly Sex and Gender Information Value Date Recorded Sex Assigned at Not on file Legal Sex Male 11:01 PM EDT Gender Identity Not on file Sexual Orientation Not on file Last Filed Vital Signs Vital Sign Reading Time Taken Comments Blood Pressure 131/76 02/21/2023 11:32 PM EDT Pulse 85 02/21/2023 11:32 PM EDT Temperature 37.1 ??C (98.7 ??F) 02/21/2023 11:32 PM E DT Respiratory Rate 20 02/21/2023 11:32 PM EDT Oxygen Saturation 98% 02/21/2023 11:32 PM EDT Inhaled Oxygen Concentration - - Weight - - Height - - Body Mass Index - - Plan of Treatment Not on file Insurance [employer] Care Teams Bagger And Stock Handler Helper Relationship Specialty Start Date End Date Ez Pedersen MD [address] [address] PCP - General Pediatrics 02/21/23
--- OUTSIDE RECORDS SUMMARY | 2024-11-30 16:05 | XMS_ITS | Clinical Summary ---
Author Organization [facility] Address [address] [place] [address] Care Team Providers Care Burlapper Name Role Phone Unavailable Primary Care Provider Unavailabl e Social History Tobacco Use Types Packs/Day Years Used Date Smoking Tobacco: Never Assessed Sex and Gender Information Value Date Recorded Sex Assigned at Male 12/29/2023 1:14 PM EDT Legal Sex Male 6:49 PM EST Gender Identity Male 12/29/2023 1:14 PM EDT Sexual Orientation Not on file Plan of Treatment Health Maintenance Due Date Last Done Comments Blood Pressure 2002 Depression Screening 2006 Hepatitis C Screening 2020 DTaP,Tdap,and Td Vaccines (1 - Tdap) 2021 COVID-19 Vaccine (2023-2 5 season) 2024 Influenza Vaccine (Season Ended) 2025 Meningococcal Vaccines Aged Out No lo nger eligible based on patient's age to complete this topic Pneumococcal Vaccine: Pediat rics (0 to 5 Years) and At-Risk Patients (6 to 64 Years) Aged Out No longer eligible b ased on patient's age to complete this topic
== END 2024-11-30 15:14 | disposition home or self-care (01) ==
LOC: HO.HOS 14:52
DX: L03.012 Cellulitis of left finger (principal)
CPT/HCPCS: 99213